=== PATIENT | female | born 1960 | race Caucasian/White ===

== ENCOUNTER 2024-07-29 12:25 | Outpatient (CLI) | payer OTHER, MEDICAID ==
[2024-07-29 13:25] LABS: #Basophils 0.08 10x3/uL (0.0-0.2); #Eosinophils 0.24 10x3/uL (0.0-0.5); #Monocytes 0.56 10x3/uL (0.0-1.1); #Neutrophils 6.77 10x3/uL (1.5-8.4); %Basophils 0.8 % (0.0-2.0); %Eosinophils 2.3 % (0.0-6.0); %Lymphocytes 25.7 % (18.0-47.0); %Monocytes 5.4 % (0.0-10.0); %Neutrophils 65.2 % (40.0-75.0); Hematocrit 45.2 % (34.9-44.5); Hemoglobin 15.4 g/dL (12.0-15.5); Mean Corpuscular HGB CONC 34.1 g/dL (32.0-36.0); Mean Corpuscular Hemoglobin 31.6 pg (27.0-33.0); Mean Corpuscular Volume 92.6 fL (81.6-98.3); Mean Platelet Volume 10.1 fL (7.4-10.4); Platelet Count 355 10x3/uL (150-450); RBC Distribution Width 12.3 % (11.5-14.5); Red Blood Cell (RBC) Count 4.88 10x6/uL (3.90-5.03); White Blood Cell (WBC) Count 10.4 10x3/uL (3.5-10.5)
[2024-07-29 13:43] LABS: Anion Gap 14 mmol/L (10-20); BUN (Urea Nitrogen) 15 mg/dL (9.8-20.1); Calc. Creatinine Clearance 0 mL/min (70-130); Calcium 10.1 mg/dL (7.8-10.44); Carbon Dioxide 26 mmol/L (23-31); Chloride 104 mmol/L (98-107); Estimated GFR 77; Glucose 133 mg/dL (80-115); Potassium 3.9 mmol/L (3.5-5.1); Sodium 140 mmol/L (136-145)
== END 2024-07-29 12:26 | disposition home or self-care (01) ==
LOC: CSHLAB 12:25
PROVIDERS: ATTEND Specialist
DX: Z01.818 Encounter for other preprocedural examination (principal); C50.911 Malignant neoplasm of unspecified site of right female breast; R94.31 Abnormal electrocardiogram [ECG] [EKG]
CPT/HCPCS: 71046; 80048; 85025; 93005; 93010

== ENCOUNTER 2024-08-08 08:24 | Day surgery (SDC) | payer OTHER, MEDICAID ==
[2024-07-29 12:47] VITALS: BMI 39.6
[2024-08-08] MEDS ORDERED: Ketorolac Tromethamine 30 MG (1 mL) VIAL ONE (08:57)
[2024-08-08] MEDS ORDERED: Acetaminophen 500 MG TAB ONE (08:58)
[2024-08-08] MEDS ORDERED: PROPOFOL 20 ML ONE (12:08)
[2024-08-08] MEDS ORDERED: Ondansetron PF 4 MG/2 ML Vial ONE (12:08)
[2024-08-08] MEDS ORDERED: Dexamethasone 20 MG/5 ML VIAL ONE (12:08)
[2024-08-08] MEDS ORDERED: Lidocaine 1% PF 5 ML VIAL ONE (12:08)
[2024-08-08] MEDS ORDERED: fentaNYL 50 mcg/mL 1 mL Vial ONE ×2 (12:09→14:50)
[2024-08-08] MEDS ORDERED: Midazolam HCl 2 mg/2 ml Vial ONE (12:09)
[2024-08-08] MEDS ORDERED: Bupivacaine/Epinephrine 0.25% 30 ML VIAL ONE ×2 (12:13→13:18)
[2024-08-08] MEDS ORDERED: Lidocaine 2% PF 5 ML VIAL ONE (12:13)
[2024-08-08] MEDS ORDERED: Isosulfan Blue 50 MG/5 ML VIAL ONE (12:13)
[2024-08-08] MEDS ORDERED: Sevoflurane 250 ML INH ANEST BOTTLE ONE (12:15)
[2024-08-08] MEDS ORDERED: CEFAZOLIN 2 GM VIAL ONE (12:30)
[2024-08-08] MEDS ORDERED: ePHEDrine Sulfate 50 MG/10 ML VIAL ONE (12:47)
[2024-08-08] MEDS ORDERED: PHENYLEPHRINE-NS 100 MCG/ML 10 ML SYRINGE ONE (13:15)
[2024-08-08] MEDS ORDERED: HYDROcodone/Acetaminophen 5/325 mg Tablet ONE (15:30)
== END 2024-08-08 16:00 | disposition home or self-care (01) ==
LOC: CSHSDC 08:24
PROVIDERS: ATTEND Specialist
PROC: 0JH63WZ Insertion of Totally Implantable Vascular Access Device into Chest Subcutaneous Tissue and Fascia, Percutaneous Approach (ICD-10-PCS; principal; 2024-08-08)
PROC: 0HBU0ZZ Excision of Left Breast, Open Approach (ICD-10-PCS; 2024-08-08)
PROC: 0HB5XZX Excision of Chest Skin, External Approach, Diagnostic (ICD-10-PCS; 2024-08-08)
DX: C50.911 Malignant neoplasm of unspecified site of right female breast (principal); Z17.0 Estrogen receptor positive status [ER+]; E78.00 Pure hypercholesterolemia, unspecified; I10 Essential (primary) hypertension; E03.9 Hypothyroidism, unspecified; E66.9 Obesity, unspecified; Z79.890 Hormone replacement therapy; Z79.899 Other long term (current) drug therapy; Z87.891 Personal history of nicotine dependence; Z91.010 Allergy to peanuts; Z91.048 Other nonmedicinal substance allergy status
CPT/HCPCS: 19125; 19285; 36561; 38525; 38900; 71045; 76098; 78195; A6258 ×2; A9541; C1713; C1788; J1100; J1642; J1885; J2250; J2405; J2704; J3010; Q9968; 88305; 88307; 88341; 88342

== ENCOUNTER 2025-07-28 10:10 | Outpatient (CLI) | payer OTHER, MEDICAID | END 2025-07-28 10:11 | disposition home or self-care (01) | LOC: CSHMAMMO 10:10 | PROVIDERS: ATTEND Specialist | DX: Z08 Encounter for follow-up examination after completed treatment for malignant neoplasm (principal); Z85.3 Personal history of malignant neoplasm of breast | CPT/HCPCS: 77066; G0279 ==